=== PATIENT | male | born 1985 | race Hispanic/Latino ===

== ENCOUNTER 2024-03-03 09:52 | Emergency (ER) | payer SELFPAY ==
[2024-03-03] VITALS (10 sets, daily range): BP systolic 113–135; BP diastolic 63–90
[~2024-03-03] VITALS: Ht 172.7 cm; Wt 99.7 kg
[2024-03-03] MEDS ORDERED: traMADol HCL 50 MG/TAB PO ONE (10:25)
[2024-03-03] MEDS ORDERED: NAPROXEN500 MG PO (12:10)
== END 2024-03-03 12:39 | disposition home or self-care (01) | DRG 90 ==
LOC: ED 09:52
DX: S06.0X0A Concussion without loss of consciousness, initial encounter (principal); S02.2XXA Fracture of nasal bones, initial encounter for closed fracture; Y04.2XXA Assault by strike against or bumped into by another person, initial encounter; Y92.59 Other trade areas as the place of occurrence of the external cause